=== PATIENT | male | born 1970 | race Caucasian/White ===

== ENCOUNTER 2018-02-28 14:27 | Inpatient (IN) | payer MEDICARE, OTHER ==
[~2018-02-28] VITALS: Ht 172.7 cm; Wt 109.6 kg
[~2018-02-28 14:27] MED LIST: ALBUTEROL INH; ASPIR 8181 MG PO; ATIVAN; CLONAZEPAM 1 MG1 M1 PO; COREG3.125 MG PO; CRESTOR10 MG PO; HYDROCODONE-ACE15 ML PO; LORTAB 5 MG/5001 TA1 PO; METHADONE HCL 110 M1 PO; NEXIUM40 MG PO; PLAVIX 75 MG TA75 M1 PO; PREDNISONE 5 MG5 M1 PO; ZANAFLEX; ZETIA10 MG PO
[2018-02-28 14:39] VITALS: BP 122/69
[2018-02-28 15:21] LABS: ABSOLUTE BASOPHILS 0.1 thou/uL (0.0-0.2); ABSOLUTE EOSINOPHILS 0.1 thou/uL (0.0-0.7); ABSOLUTE LYMPHOCYTES 1.8 thou/uL (0.8-5.3); ABSOLUTE NEUTROPHILS 11.7 thou/uL (1.6-8.1); BASOPHILS 0.5 %; EOSINOPHILS 0.4 %; HEMATOCRIT 37.3 % (42.0-52.0); HEMOGLOBIN 13.1 gm/dL (14.0-18.0); LYMPHOCYTES 12.1 %; MCH 32.9 pg (26.0-34.0); MCHC 35.2 g/dL (28.0-37.0); MCV 93.6 fL (80.0-100.0); MONOCYTES 6.8 %; MPV 8.5 fl. (7.2-11.1); NUCLEATED RBCS 0 /100WBC; PLATELET COUNT* 232 thou/uL (150-400); POLYS 80.2 %; RBC 3.98 mil/uL (4.50-6.00); RDW-CV 12.6 % (10.5-14.5); WBC 14.6 thou/uL (4.0-11.0)
[2018-02-28 15:29] LABS: CALCIUM 8.8 mg/dL (8.5-10.1); CREATININE 1.1 mg/dL (0.6-1.3); POTASSIUM 3.4 mmol/L (3.5-5.1)
[2018-02-28 15:34] LABS: ALBUMIN 3.8 g/dL (3.4-5.0); TOTAL PROTEIN 7.4 g/dL (6.4-8.2)
[2018-02-28 16:47] LABS: URINE BLOOD NEGATIVE (Negative); URINE CLARITY CLEAR; URINE COLOR YELLOW; URINE GLUCOSE-RANDOM NEGATIVE (Negative); URINE KETONES 1+ (Negative); URINE LEUKOCYTES-REFLEX NEGATIVE (Negative); URINE NITRITE-REFLEX NEGATIVE (Negative); URINE PROTEIN NEGATIVE (Negative); URINE SPECIFIC GRAVITY >= 1.030 (1.005-1.030); URINE UROBILINOGEN 0.2 E.U./dl (0.2-1.0)
[2018-02-28 16:52] LABS: URINE BILIRUBIN 1+ (Negative)
[2018-02-28 16:54] LABS: ICTOTEST (BILI CONFIRMATORY) Positive (Negative)
[2018-02-28 18:34] VITALS: BP 117/69
[2018-02-28 18:56] VITALS: BP 115/80
--- NOTE | 2018-03-01 06:03 | NUR ---
PT ADMITED TO UNIT. PT ORIENTED TO ROOM, CALL LIGHT SHOWN, FALL AGREEMENT WENT OVER. PT STATES UNDERSTANDING. ASSESSMENT DOCUMENTED. MEDS GIVEN PER E-MAR. IV PATENT, FLUIDS INFUSING. PAIN MEDS GIVEN PER E-MAR FOR PTS BACK AND PERIANAL PAIN. PICTURES OF ABCESS TAKEN. WILL CONTINUE WITH PLAN OF CARE.
[2018-03-01] MEDS ORDERED: HYDROCODON-ACE1 EAC8 PO (07:36)
[2018-03-01 08:00] VITALS: BP 148/73
[2018-03-01 11:31] LABS: HEMATOCRIT 35.2 % (42.0-52.0); HEMOGLOBIN 12.3 gm/dL (14.0-18.0); MCH 32.6 pg (26.0-34.0); MPV 8.4 fl. (7.2-11.1); RBC 3.78 mil/uL (4.50-6.00); RDW-CV 12.5 % (10.5-14.5); WBC 10.8 thou/uL (4.0-11.0)
[2018-03-01 11:45] LABS: CREATININE 0.8 mg/dL (0.6-1.3); POTASSIUM 3.3 mmol/L (3.5-5.1)
[2018-03-01] MEDS ORDERED: FLAGYL500 MG PO (11:47)
[2018-03-01 11:48] VITALS: BP 148/73
[2018-03-01] MEDS ORDERED: AUGMENTIN 875-1 EACH PO (11:48)
--- NOTE | 2018-03-02 08:08 | CON ---
[address] [address] CONSULTATION Name: SUKIMICHELE Fernández Room: [address] IN M.R.#: [id number] Admission: 02/28/18 Attend Phys: Yaquelin Esparza Discharge: 03/01/18 Date of : 74 Report #: [id number] THIS REPORT FOR: //name// CC: [facility] physician/PCP Kris Bains DATE OF SERVICE: 03/01/2018 INFECTIOUS DISEASE CONSULTATION ATTENDING PHYSICIAN: Kris Bains MD REASON FOR EVALUATION: Perianal abscess. HISTORY OF PRESENT ILLNESS: Chart reviewed, patient examined. This is a 47-year-old gentleman with fairly significant medical history, given his age. He has chronic back pain, who developed worsening signs and symptoms. He was evaluated. Imaging suggested a perianal abscess that was drained spontaneously, been placed on empiric antibiotics with meropenem. Clinically, has improved fairly dramatically, was evaluated by Surgery who recommended no intervention at this point, felt he could be discharged. At this point, he denies any pain in the perirectal area, has persistent low back pain. No fevers. Appetite has been variable, although he states he seems to have improved recently. He denies any pulmonary complaints. No abdominal related complaints. ALLERGIES: LOMOTIL, PENICILLIN, CEPHALOSPORINS, VANCOMYCIN. CURRENT MEDICINES: Include methadone, prednisone, aspirin, clonazepam, metronidazole, meropenem, fentanyl, ondansetron. PAST MEDICAL HISTORY: As noted above, history of asthma, elevated cholesterol, has known atherosclerotic coronary artery disease with previous ND and stent placement, has had multiple back surgeries, history of anxiety. SOCIAL HISTORY: Nonsmoker. Occasional ethanol. FAMILY HISTORY: Noncontributory. REVIEW OF SYSTEMS: As above. PHYSICAL EXAMINATION: GENERAL: He is pleasant, alert, cooperative, in mild distress. He is lying in right lateral decubitus position. He is not encephalopathic, appears to be generally well nourished. VITAL SIGNS: Temperature 98, pulse 76, respirations 18, blood pressure 148/73. SKIN: Warm, dry, [place] [address] CONSULTATION Name: MICHELE COHN Room: [address] IN [facility]#: [id number] Admission: 02/28/18 Attend Phys: Yaquelin Esparza Discharge: 03/01/18 Date of : 74 Report #: [id number] HEENT: Unremarkable. NECK: Supple. LUNGS: Clear to auscultation. HEART: Regular. ABDOMEN: Soft, nontender, nondistended, is obese. Perirectal area on the right aspect has moderate degree of inflammation, it is really not significantly indurated. I do not appreciate any expressible material. He denies any tenderness. LABORATORY DATA: Blood cultures sterile thus far. CT of the pelvis, small perianal abscess anterior inferior to the anal sphincter. Urinalysis unremarkable. Lactic acid of 0.8. Electrolytes: Sodium 132, potassium 3.4, chloride 98, bicarbonate is 28, BUN and creatinine 23 and 1.1, glucose of 129. LFTs unremarkable. Albumin of 3, total protein 7.4. Estimated GFR of 72. CBC: White count of 14.6, H and H 13.1 and 37.3, platelets of 232. ASSESSMENT AND PLAN: Perianal abscess, unclear that is exactly what the inciting issue is, seemingly got a significant relief with spontaneous drainage addition to antibiotics. I think it is reasonable to transition to oral antibiotics given his hypersensitivities, Levaquin and Flagyl is reasonable. We will see him back in 2 weeks. <ELECTRONICALLY SIGNED> By: Marco Chávez MD 03/02/18 [id number] Chávez MD /nt
== END 2018-03-01 13:17 | disposition home or self-care (01) | DRG 394 ==
LOC: M.ERS 14:27 → M.TBA-ER 17:22 → M.3W 17:22
PROVIDERS: Internal Medicine; Physician Assistant; ADMIT Internal Medicine
DX: K61.0 Anal abscess (principal); E27.40 Unspecified adrenocortical insufficiency; E87.1 Hypo-osmolality and hyponatremia; G89.29 Other chronic pain; M54.5 Low back pain; J45.909 Unspecified asthma, uncomplicated; E78.00 Pure hypercholesterolemia, unspecified; I25.10 Atherosclerotic heart disease of native coronary artery without angina pectoris; F41.9 Anxiety disorder, unspecified; M48.00 Spinal stenosis, site unspecified; Z88.0 Allergy status to penicillin; Z88.1 Allergy status to other antibiotic agents; Z88.8 Allergy status to other drugs, medicaments and biological substances; I25.2 Old myocardial infarction; Z95.5 Presence of coronary angioplasty implant and graft